=== PATIENT | female | born 1975 | race African-American/Black ===

== ENCOUNTER 2019-12-01 19:26 | Emergency (ER) | payer OTHER ==
[~2019-12-01] VITALS: Ht 170.2 cm; Wt 78.6 kg
[2019-12-01 19:34] VITALS: Ht 170.2 cm; Wt 78.6 kg
[2019-12-01 20:08] LABS: BASOPHILS 0.2 % (0-2); EOSINOPHILS 1.5 % (0-7); HEMATOCRIT 38.1 % (36.0-48.0); HEMOGLOBIN 12.6 g/dL (12-16); IMMATURE GRANULOCYTES 0.1 % (0-5); LYMPHOCYTES 45.8 % (15-50); MCH 29.8 pg (26.0-34.0); MCHC 33.1 g/dL (31.0-37.0); MCV 90.1 fL (80.0-100.0); MEAN PLATELET VOLUME 8.5 fL (7.4-10.4); MONOCYTES 7.2 % (2-11); NEUTROPHILS 45.2 % (40-80); PLATELET COUNT 320 10x3/uL (130-400); RBC 4.23 10x6/uL (4.00-5.40); RDW 12.3 % (11.5-14.5); WBC 8.7 10x3/uL (4.8-10.8)
[2019-12-01 20:17] LABS: CALC OSMOLALITY 272 mosm/kg (275-300); CALCIUM 8.6 mg/dL (8.5-10.1); CARBON DIOXIDE 28.2 mmol/L (21.0-32.0); CHLORIDE - SERUM 103 mmol/L (98-107); CREATININE - SERUM 1.1 mg/dL (0.6-1.3); GLUCOSE 100 mg/dL (74-106); POTASSIUM - SERUM 3.5 mmol/L (3.5-5.1); SODIUM 136 mmol/L (136-145); UREA NITROGEN 14 mg/dL (7-18); eGFR NON AFRICAN AMERICAN 57 mL/min (90-120)
[2019-12-01 20:20] LABS: APTT 27.6 SECONDS (22.8-39.4); INR 0.88 (0.85-1.17)
[2019-12-01 20:33] LABS: ALBUMIN 3.6 g/dL (3.4-5.0); ALKALINE PHOSPHATASE 85 U/L (30-120); ALT (SGPT) 39 U/L (10-68); BILIRUBIN - TOTAL 0.31 mg/dL (0.2-1.3); CKMB 1.1 U/L (0.0-3.6); CREATINE KINASE 181 UL (21-215); MAGNESIUM - SERUM 2.1 mg/dL (1.8-2.4); PROTEIN - SERUM 7.2 g/dL (6.4-8.2)
[2019-12-01 20:38] LABS: TROPONIN-I < 0.017 ng/mL (0.000-0.060)
[2019-12-01] MEDS ORDERED: VOLTAREN75 MG PO (20:43)
[2019-12-01 21:03] VITALS: BP 132/70
== END 2019-12-01 21:04 | disposition home or self-care (01) ==
LOC: D.ER 19:26
PROVIDERS: Emergency Medicine
DX: N64.4 Mastodynia (principal)

== ENCOUNTER 2019-12-05 19:56 | Emergency (ER) | payer OTHER ==
[~2019-12-05] VITALS: Ht 170.2 cm; Wt 78.6 kg
[~2019-12-05 19:56] MED LIST: VOLTAREN75 MG PO
[2019-12-05 20:06] VITALS: Ht 170.2 cm; Wt 78.6 kg
[2019-12-05 20:29] LABS: BASOPHILS 0.2 % (0-2); EOSINOPHILS 1.4 % (0-7); HEMATOCRIT 38.4 % (36.0-48.0); HEMOGLOBIN 12.6 g/dL (12-16); IMMATURE GRANULOCYTES 0.2 % (0-5); LYMPHOCYTES 42.8 % (15-50); MCH 29.3 pg (26.0-34.0); MCHC 32.8 g/dL (31.0-37.0); MCV 89.3 fL (80.0-100.0); MEAN PLATELET VOLUME 8.6 fL (7.4-10.4); MONOCYTES 6.5 % (2-11); NEUTROPHILS 48.9 % (40-80); PLATELET COUNT 323 10x3/uL (130-400); RDW 12.3 % (11.5-14.5); WBC 8.1 10x3/uL (4.8-10.8)
[2019-12-05 20:38] LABS: INR 0.9 (0.85-1.17); PROTIME 12.1 SECONDS (11.6-15.0)
[2019-12-05 20:39] LABS: APTT 29.1 SECONDS (22.8-39.4); CALC OSMOLALITY 278 mosm/kg (275-300); CALCIUM 8.5 mg/dL (8.5-10.1); CARBON DIOXIDE 29.1 mmol/L (21.0-32.0); CHLORIDE - SERUM 105 mmol/L (98-107); CREATININE - SERUM 1.1 mg/dL (0.6-1.3); GLUCOSE 99 mg/dL (74-106); POTASSIUM - SERUM 3.8 mmol/L (3.5-5.1); SODIUM 139 mmol/L (136-145); UREA NITROGEN 14 mg/dL (7-18); eGFR NON AFRICAN AMERICAN 57 mL/min (90-120)
[2019-12-05 20:56] LABS: ALBUMIN 3.5 g/dL (3.4-5.0); ALKALINE PHOSPHATASE 84 U/L (30-120); ALT (SGPT) 35 U/L (10-68); BILIRUBIN - TOTAL 0.37 mg/dL (0.2-1.3); CKMB 0.8 U/L (0.0-3.6); CREATINE KINASE 157 UL (21-215); PROTEIN - SERUM 7.3 g/dL (6.4-8.2)
[2019-12-05 21:09] LABS: TROPONIN-I < 0.017 ng/mL (0.000-0.060)
[2019-12-05] MEDS ORDERED: PROTONIX20 MG PO (22:25)
[2019-12-05 22:46] VITALS: BP 146/87
== END 2019-12-05 22:46 | disposition home or self-care (01) ==
LOC: D.ER 19:56
PROVIDERS: Family Medicine
DX: R10.13 Epigastric pain (principal)